=== PATIENT | female | born 2000 | race Caucasian/White ===

== ENCOUNTER → 2022-11-22 09:26 | Outpatient (CLI) | payer OTHER, SELFPAY ==
--- NOTE | ~2022-11-22 | XR_ITS ---
EXAMINATION: XR hip RT min 2V DATE: 11/22/2022 09:44 INDICATION: Right hip clicking TECHNIQUE: Anteroposterior and frog-leg lateral views of the right hip were obtained. COMPARISON: None. FINDINGS: Alignment is normal. No fracture or suspected avascular necrosis. Right hip joint and sacroiliac join t spaces are normal. Soft tissues are unremarkable. IMPRESSION: 1. Negative right hip radiographs. Reviewed, dictated and finalized at location L.
== END ==
PROVIDERS: PCP Nurse Practitioner; Visit Provider Nurse Practitioner
DX: R29.4 Clicking hip (principal); M25.551 Pain in right hip
CPT/HCPCS: 73502